=== PATIENT | female | born 1975 | race African-American/Black ===

== ENCOUNTER 2020-09-06 14:03 | Emergency (ER) | payer BC ==
[~2020-09-06] VITALS: Ht 172.7 cm; Wt 115.7 kg
[~2020-09-06 14:03] MED LIST: HYDROCHLOROTHIA25 M1 PO; LISINOPRIL10 MG PO
[2020-09-06 14:49] LABS: ABSOLUTE NEUTROPHILS 5.8 thou/uL (1.4-8.2); BASOPHILS 0.9 % (0.0-2.0); EOSINOPHILS 2.6 % (0.0-3.0); HEMOGLOBIN 11.3 gm/dL (12.0-15.0); LYMPHOCYTES 23.7 % (24.0-44.0); MCH 29.5 pg (26.0-34.0); MCHC 33.2 g/dL (28.0-37.0); MCV 88.8 fL (80.0-100.0); MONOCYTES 9.2 % (1.0-8.0); PLATELET COUNT 454 thou/uL (150-400); POLYS 63.6 % (36.0-66.0); RBC 3.82 mil/uL (4.20-5.00); RDW 13.9 % (10.5-14.5); WBC 9.2 thou/uL (4.0-11.0)
[2020-09-06 14:57] LABS: CALCIUM 8.8 mg/dL (8.5-10.1); CREATININE 0.8 mg/dL (0.6-1.0)
[2020-09-06 15:03] LABS: ALBUMIN 3.3 g/dL (3.4-5.0); TOTAL BILIRUBIN 0.3 mg/dL (0.2-1.0); TOTAL PROTEIN 7.2 g/dL (6.4-8.2)
[2020-09-06 17:35] VITALS: BP 167/74
== END 2020-09-06 17:35 | disposition home or self-care (01) ==
LOC: ER 14:03
PROVIDERS: Emergency Medicine
DX: R10.9 Unspecified abdominal pain (principal); Z79.899 Other long term (current) drug therapy; Z88.0 Allergy status to penicillin